=== PATIENT | female | born 1975 | race Caucasian/White ===

== ENCOUNTER 2017-02-06 10:46 | Emergency (ER) | payer OTHER ==
[~2017-02-06] VITALS: Ht 160 cm; Wt 45.0 kg
[2017-02-06 10:49] VITALS: BP 104/62; PULSE 81; RESP 16; TEMP 98.3; O2SAT 100
[2017-02-06] MEDS ORDERED: GABA300C5 PO (10:55)
[2017-02-06] MEDS ORDERED: PAXI10TA2 PO (10:55)
[2017-02-06] MEDS ORDERED: ZOFR8TAB PO (10:55)
[2017-02-06] MEDS ORDERED: TIZA2CAP3 PO (10:56)
--- NOTE | 2017-02-06 11:40 | PD ---
HPI Chief Complaint: Injury Time Seen by Provider: 11:11 Travel History International Travel<30 days: No Contact w/Intl Traveler<30days: No Traveled to known affect area: No History of Present Illness HPI 41 YO F presents to the ED for evaluation of right ankle pain and swelling. Onset 3 days ago. Patient denies any acute injury. Also complains of numbness of the third through fifth toes. She endorses previous history of fracture with ORIF. She states she had a period of numbness following the initial surgery. She has been ambulatory on the affected ankle. PFSH Past Medical History Depression: Yes Diminished Hearing: No Gastrointestinal Disorders: Yes Musculoskeletal: Yes Immunizations Current: Yes Tetanus Vaccination: < 5 Years Influenza Vaccination: Yes ?: Not Past Surgical History Section: Yes Cholecystectomy: Yes Other Surgery: Yes (back) Social History Alcohol Use: Yes (0cc) Tobacco Use: Yes (1/2) Substance Use: No Allergies-Medications (Allergen,Severity, Reaction): Coded Allergies: Ancef (Verified Allergy, Severe, 02/06/17) Morphine (Verified Allergy, Severe, 02/06/17) Tramadol (Verified Allergy, Severe, 02/06/17) Reported Meds & Prescriptions Reported Meds & Active Scripts Active Naproxen 500 Mg Tab 500 Mg PO BID Reported Tizanidine (Tizanidine HCl) 2 Mg Cap 2 Mg PO BID Paxil (Paroxetine HCl) 10 Mg Tab 10 Mg PO DAILY Zofran (Ondansetron HCl) 8 Mg Tab 8 Mg PO TID Gabapentin 300 Mg Cap 300 Mg PO TID Review of Systems Except as stated in HPI: all other systems reviewed are Neg Physical Exam Narrative GENERAL: Well-nourished, well-developed white female in no acute distress. SKIN: Focused skin assessment warm/dry. HEAD: Normocephalic. EYES: No scleral icterus. No injection or drainage. NECK: Supple, trachea midline. No JVD or lymphadenopathy. CARDIOVASCULAR: Regular rate and rhythm without murmurs, gallops, or rubs. RESPIRATORY: Breath sounds equal bilaterally. No accessory muscle use. GASTROINTESTINAL: Abdomen soft, non-tender, nondistended. MUSCULOSKELETAL: No cyanosis, or edema. FOCUSED RIGHT LOWER EXTREMITY EXAM: 2+ radial pulse. Squeeze test negative. Tenderness and mild edema over the lateral malleolus. No tenderness to palpation of the base of the fifth metatarsal or navicular. Patient is able to flex and extend the ankle. She is able to flex and extend the toes. Sensation intact to light touch distally. Cap refill less than 2 seconds. BACK: Nontender without obvious deformity. No CVA tenderness. Data Data Last Documented VS Vital Signs Date Time Temp Pulse Resp B/P Pulse Ox O2 Delivery O2 Flow Rate FiO2 02/06/17 10:49 98.3 81 16 104/62 100 Orders Ankle, Complete ([id number]) (02/06/17 11:06) Ice/Cold Pack (02/06/17 11:06) [facility] Medical Decision Making Medical Screen Exam Complete: Yes Emergency Medical Condition: Yes Differential Diagnosis Acute on chronic ankle pain versus ankle strain versus ankle sprain versus fracture versus dislocation versus hardware failure versus other Narrative Course 41 YO F presents to the ED for evaluation of right ankle pain and swelling. Onset 3 days ago. Patient denies any acute injury. Also complains of numbness of the third through fifth toes. She endorses previous history of fracture with ORIF. She states she had a period of numbness following the initial surgery. She has been ambulatory on the affected ankle. Vitals reviewed. Physical exam reveals mild edema and tenderness to palpation of the lateral malleolus but is otherwise unremarkable. X-ray reveals intact hardware, no acute bony injury. I discussed the chronicity of ankle pain and swelling status post ORIF with the patient. I instructed the patient to rest, ice, elevate, compress the affected ankle. Prescribed a short course of anti- inflammatory medications. Patient was warned not to run or jump on the ankle, follow-up with the orthopedist. She indicated understanding of instructions and is agreeable care plan. Stable and discharged home. Diagnosis Primary Impression: Chronic pain of right ankle Additional Impression: Status post ORIF of fracture of ankle Referrals: Orthopedist Patient Instructions: Ankle Exercises (GEN), General Instructions, Swollen Ankle Joint (ED) Additional Instructions: Rest, ice, elevate the extremity. Wear compression socks daily. Apply ice no longer than 10-15 minutes per hour a few times a day. 500mg Naproxen twice a day to reduce pain and inflammation Return to normal, gentle activity as tolerated. No running, jumping activities for the next few weeks. Follow up with orthopedist or your primary care provider. Return to the ED for any urgent or emergent medical condition. Med/Other Pt SpecificInfo: Prescription(s) given Scripts Naproxen 500 Mg [id number] Mg PO BID #14 TAB Ref 0 Prov:Theron Waller MD 02/06/17 Disposition: 01 DISCHARGE HOME Condition: Stable Paz Monahan Feb 06, 2017 11:40
--- NOTE | 2017-02-06 11:48 | RADRPT ---
EXAM DATE/TIME: 02/06/2017 11:16 [facility] COMPARISON: No previous studies available for comparison. INDICATIONS : Right ankle pain, patient rolled ankle 4 days ago. MEDICAL HISTORY : Right ankle fracture. SURGICAL HISTORY : ORIF ENCOUNTER: Initial ACUITY: 4 - 6 days PAIN SCORE: 8/10 LOCATION: Right ankle FINDINGS: Three view exam was performed of the right ankle. Status post internal fixation at the ankle. There i s good alignment of the bony structures. The hardware is grossly intact. No joint dislocation is seen . The rest of the bony structures are grossly intact. CONCLUSION: Good alignment and position on this examination with internal fixation at the ankle. No acute fractur e or joint dislocation. Jose G Friedman MD on February 06, 2017 at 11:45 Board Certified Radiologist. This report was verified electronically.
[2017-02-06] MEDS ORDERED: NAPR500T PO (11:58)
== END 2017-02-06 12:10 | disposition home or self-care (01) ==
LOC: PHEFT 10:46
DX: G89.29 Other chronic pain (principal); M25.571 Pain in right ankle and joints of right foot; R20.0 Anesthesia of skin; F17.210 Nicotine dependence, cigarettes, uncomplicated; Z87.81 Personal history of (healed) traumatic fracture
CPT/HCPCS: 73610; 99283

== ENCOUNTER 2017-03-20 14:48 | Emergency (ER) | payer OTHER ==
[~2017-03-20] VITALS: Ht 160 cm; Wt 45.9 kg
[~2017-03-20 14:48] MED LIST: GABA300C5 PO; NAPR500T PO; PAXI10TA2 PO; TIZA2CAP3 PO; ZOFR8TAB PO
[2017-03-20 14:53] VITALS: BP 96/65; PULSE 94; RESP 18; TEMP 98.3; O2SAT 98
--- NOTE | 2017-03-20 15:35 | PD ---
HPI Chief Complaint: Skin Problem Time Seen by Provider: 15:10 Travel History International Travel<30 days: No Contact w/Intl Traveler<30days: No Traveled to known affect area: No History of Present Illness HPI 41-year-old female was emergency department for evaluation of a painful weeping rash to her scalp and ears times one week. Patient reports she dyed her hair approximately 2 weeks ago. Rash developed approximately one week after. She denies fever or chills. She has not attempted to use any [id number] products or medicines. Symptom severity moderate. No aggravating or alleviating factors. PFSH Past Medical History Depression: Yes Diminished Hearing: No Gastrointestinal Disorders: Yes Musculoskeletal: Yes Immunizations Current: Yes ?: Not Past Surgical History Section: Yes Cholecystectomy: Yes Other Surgery: Yes (back) Social History Alcohol Use: Yes (0cc) Tobacco Use: Yes (1/2) Substance Use: No Allergies-Medications (Allergen,Severity, Reaction): Coded Allergies: Ancef (Verified Allergy, Severe, Anaphylaxis, 03/20/17) Morphine (Verified Allergy, Severe, Anaphylaxis, 03/20/17) Tramadol (Verified Allergy, Severe, HIVES, 03/20/17) Reported Meds & Prescriptions Reported Meds & Active Scripts Active Reported Tizanidine (Tizanidine HCl) 2 Mg Cap 2 Mg PO BID Paxil (Paroxetine HCl) 10 Mg Tab 10 Mg PO DAILY Zofran (Ondansetron HCl) 8 Mg Tab 8 Mg PO TID Gabapentin 300 Mg Cap 300 Mg PO TID Review of Systems Except as stated in HPI: all other systems reviewed are Neg General / Constitutional: No: Fever Eyes: No: Visual changes HENT: No: Headaches Cardiovascular: No: Chest Pain or Discomfort Respiratory: No: Shortness of Breath Gastrointestinal: No: Abdominal Pain Physical Exam Narrative GENERAL: Well-nourished, well-developed patient. SKIN: Focused skin assessment diffuse areas of erythema/crusting/excoriation to the scalp along the hairline and the posterior portion of the ears with clear yellow discharge from multiple areas. HEAD: Normocephalic. EYES: No scleral icterus. No injection or drainage. NECK: Supple, trachea midline. No JVD or lymphadenopathy. CARDIOVASCULAR: Regular rate and rhythm without murmurs, gallops, or rubs. RESPIRATORY: Breath sounds equal bilaterally. No accessory muscle use. GASTROINTESTINAL: Abdomen soft, non-tender, nondistended. Data Data Last Documented VS Vital Signs Date Time Temp Pulse Resp B/P Pulse Ox O2 Delivery O2 Flow Rate FiO2 03/20/17 14:53 98.3 94 18 96/65 98 MDM Medical Decision Making Medical Screen Exam Complete: Yes Emergency Medical Condition: Yes Differential Diagnosis Contact dermatitis, irritant dermatitis, wound infection Narrative Course 41-year-old female with chief complaint of pruritic painful rash to scalp and ears after dying her hair. Rash been present for one week. On exam patient has rash consistent with chemical irritant contact dermatitis with secondary infection. Patient we put on steroids, Benadryl, antibiotics. Advised to follow up PCP. Return precautions discussed. Patient verbalizes understanding and agrees to plan. Diagnosis Primary Impression: Irritant contact dermatitis due to dyes Additional Impression: Skin infection Referrals: Primary Care Physician Additional Instructions: Take the medications as described. Take [id number] Benadryl 25 mg by mouth every 6 hours as needed for itching. Follow-up with your primary care doctor. Return to emergency department if he developed new or worsening symptoms. Scripts Prednisone 20 Mg Tab40 Mg PO DAILY #8 TAB Take 40 mg (2 tablets) daily for 5 days Prov:Salome Leung 03/20/17 Sulfamethoxazole-Trimethoprim (Bactrim DS)800-160 Mg Tab1 Tab PO BID #20 TAB Prov:Salome Leung 03/20/17 Disposition: 01 DISCHARGE HOME Condition: Stable Salome Leung Mar 20, 2017 15:35
[2017-03-20] MEDS ORDERED: BACT800T5 PO (15:36)
[2017-03-20] MEDS ORDERED: PRED20 PO (15:36)
== END 2017-03-20 15:41 | disposition home or self-care (01) ==
LOC: PHEFT 14:48
DX: L24.89 Irritant contact dermatitis due to other agents (principal); T65.6X1A Toxic effect of paints and dyes, not elsewhere classified, accidental (unintentional), initial encounter
CPT/HCPCS: 99284